=== PATIENT | male | born 1985 | race Caucasian/White ===

== ENCOUNTER 2017-10-27 12:21 | Emergency (ER) | payer OTHER ==
[2017-10-27 12:25] VITALS: BP 117/75; PULSE 79; TEMP 98.8; BMI 26.6
--- NOTE | 2017-10-27 13:06 | PDOC ---
History of Present Illness - General Chief Complaint: Pain, Acute Stated Complaint: abd pain Time Seen by Provider: 10/27/17 13:01 - History of Present Illness Initial Comments: 10/27/17 14:02 Chief complaint: Epigastric pain History of present illness: Patient complains of intermittent epigastric pain described as "indigestion" with a bloating feeling for approximately 10 days. Initial symptoms occurred after heavy alcohol consumption. It seems to be aggravated by stress, alcohol, and large meals. He has had a sensitive stomach for many years, but no diagnosis of peptic ulcer disease and no GI bleeding. He is under considerable stress from work and family. He does not smoke but he drinks a lot of coffee and considerable alcohol when partying. Review of systems: No fever/chills, URI symptoms, chest pain, shortness of breath, cough, back pain, nausea, vomiting, diarrhea, constipation, melena, bloody stool, mucus in his stool, or hematemesis. No urinary tract symptoms, visual or focal neurologic symptoms, dizziness, lightheadedness, or unsteadiness of gait Past medical history: Healthy male with no serious medical problems in the past. Has used omeprazole on a when necessary basis for what sounds like dyspepsia. No surgery. No GI bleeding. Social history: No tobacco or nonprescription drugs. Alcohol as described above. High stress levels. Family history: Reviewed and noncontributory including early coronary artery disease, metabolic disease including diabetes, GI diseases including peptic ulcer disease and cancer. Physical exam: Alert oriented 3 well-developed well-nourished no acute distress cheerful and cooperative Afebrile, vital signs normal No pallor or icterus. PERRLA, fundi benign, conjunctivae, ENT clear Neck supple without bruit mass or nodes Chest clear CV regular without murmur rub or gallop Abdomen nondistended. Bowel sounds normal. Soft without masses tenderness organomegaly. No CVAT. Extremities no CCE Skin clear, no rash, adequate turgor and wet mucous membranes Neurological intact Impression: No evidence of peritonitis, cholecystitis, or lower abdominal/ pelvic disease. Symptoms confined to the epigastrium, no tenderness, increased stress, alcohol consumption, all suggest gastritis or early peptic ulcer disease Plan: Patient is under the care of primary physician [facility]. He had blood work less than 1 week ago which she reports as entirely normal. He is encouraged to obtain GI referral for endoscopy. Increase omeprazole to 40 mg daily on a regular, rather than when necessary basis, avoid caffeine and alcohol. Return to ER if symptoms worsen or further symptoms develop. Fully ambulatory and in no significant pain or other distress upon discharge to follow -up as directed. Past History - Past Medical History Allergies/Adverse Reactions: Allergies Allergy/AdvReac Type Severity Reaction Status Date / Time shellfish derived Allergy Severe Difficulty Verified 10/27/17 12:22 Breathing Home Medications: Ambulatory Orders Omeprazole Magnesium 20 mg PO DAILY #20 capsule. 10/27/17 COPD: No Other medical history: denies - Suicide/Smoking/Psychosocial Hx Smoking History: Never smoked Have you smoked in the past 12 months: No Hx Alcohol Use: Yes Drug/Substance Use Hx: No Substance Use Type: Alcohol *Physical Exam - Vital Signs Last Vital Signs Temp Pulse Resp BP Pulse Ox 98.8 F 79 16 117/75 99 10/27/17 12:22 10/27/17 12:22 10/27/17 12:22 10/27/17 12:22 10/27/17 12:22 *DC/Admit/Observation/Transfer Diagnosis at time of Disposition: Gastritis Qualifiers: Gastritis type: unspecified gastritis Chronicity: acute Gastritis bleeding: without bleeding Qualified Code(s): K29.00 - Acute gastritis without bleeding - Discharge Dispostion Disposition: HOME Condition at time of disposition: Stable Admit: No - Prescriptions Prescriptions: Omeprazole Magnesium 20 mg PO DAILY #20 capsule. - Referrals - Patient Instructions Printed Discharge Instructions: [place] Diet, DI for Gastritis Additional Instructions: See competitive intelligence analyst as directed for further testing, specifically upper endoscopy. Tried to avoid caffeine, alcohol, dairy products, and smoking. Eat frequent small meals. - Post Discharge Activity Forms/Work/School Notes: Back to Work
== END 2017-10-27 13:15 | disposition home or self-care (01) ==
LOC: FER 12:21
DX: K29.00 Acute gastritis without bleeding (principal)
CPT/HCPCS: 99281-25

== ENCOUNTER 2022-04-24 21:59 | Emergency (ER) | payer OTHER ==
[2022-04-24 22:13] VITALS: BP 135/89; PULSE 96; TEMP 98.6; BMI 27.2
== END 2022-04-24 22:21 | disposition home or self-care (01) ==
LOC: FER 21:59
DX: S61.412A Laceration without foreign body of left hand, initial encounter (principal); W26.0XXA Contact with knife, initial encounter; Y93.G1 Activity, food preparation and clean up
CPT/HCPCS: 99281-25